=== PATIENT | female | born 1980 | race Caucasian/White ===

== ENCOUNTER 2020-09-14 10:14 | Emergency (ER) | payer SELFPAY ==
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
--- NOTE | 2020-09-14 13:19 | RAD REPORT ---
EXAM DESCRIPTION: RAD - Shoulder Left 2 View - 09/14/2020 1:09 pm CLINICAL HISTORY: Left shoulder pain FINDINGS: No fracture or dislocation is seen.
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
--- NOTE | 2020-09-14 13:21 | RAD REPORT ---
EXAM DESCRIPTION: RAD - Chest Pa And Lat (2 Views) - 09/14/2020 1:10 pm CLINICAL HISTORY: Chest pain COMPARISON: None FINDINGS: A 6 millimeter nodular opacity overlies the left base. The remainder of the lungs appear clear. The heart is normal size IMPRESSION: 6 millimeter nodular opacity which overlies the left base probably a nipple shadow. Pulm onary nodules another consideration. Is recommended that patient a followup chest x-ray in 3 months w ith left nipple marker for re-evaluation
[2020-09-14 14:24] VITALS: TEMP 97.4; O2SAT 100
[2020-09-14 14:25] VITALS: BP 135/85
== END 2020-09-14 14:18 | disposition home or self-care (01) ==
LOC: ER 10:14
DX: G89.11 Acute pain due to trauma (principal); V49.40XA Driver injured in collision with unspecified motor vehicles in traffic accident, initial encounter; F17.210 Nicotine dependence, cigarettes, uncomplicated
CPT/HCPCS: 70450; 71046; 72125; 99283